=== PATIENT | female | born 1950 | race Caucasian/White ===

== ENCOUNTER 2018-06-11 20:04 | Emergency (ER) | payer MEDICARE, MEDICAID ==
[~2018-06-11] VITALS: Ht 165.1 cm; Wt 81.7 kg
[~2018-06-11 20:04] MED LIST: ARICEPT 5 MG TAB5 MG PO; ASPIRIN81 M2 PO; BUSPIRONE HCL10 MG PO; CALCIUM-VITAMI1 EAC1 PO; COZAAR 50 MG TA50 M2 PO; CRESTOR10 MG PO; FENOFIBRATE160 MG PO; KEPPRA 500 MG500 M1 PO; LEVOTHYROXIN0.088 MG PO; NAMENDA 5 MG TAB5 M1 PO; PEPCID20 MG PO; PROZAC20 MG PO; RANITIDINE 150150 M1 PO; SEROQUEL 25 MG25 M1 PO; SEROQUEL XR150 MG PO; THERAPEUTIC M PO; TOPROL XL50 MG PO; XANAX 0.25 MG0.25 MG PO
[2018-06-11 20:39] LABS: ABSOLUTE BASOPHILS 0.1 thou/uL (0.0-0.2); ABSOLUTE EOSINOPHILS 0.1 thou/uL (0.0-0.7); ABSOLUTE LYMPHOCYTES 2.4 thou/uL (0.8-5.3); ABSOLUTE NEUTROPHILS 2.5 thou/uL (1.6-8.1); EOSINOPHILS 1.8 %; HEMATOCRIT 30.6 % (37.0-47.0); HEMOGLOBIN 10.5 gm/dL (12.0-15.0); LYMPHOCYTES 39.7 %; MCH 32.4 pg (26.0-34.0); MCHC 34.1 g/dL (28.0-37.0); MCV 94.9 fL (80.0-100.0); MONOCYTES 15.8 %; MPV 9.4 fl. (7.2-11.1); NUCLEATED RBCS 0 /100WBC; PLATELET COUNT* 236 thou/uL (150-400); POLYS 41.7 %; RBC 3.23 mil/uL (4.20-5.00); RDW-CV 13.4 % (10.5-14.5); WBC 6.1 thou/uL (4.0-11.0)
[2018-06-11 20:48] LABS: APTT 25.4 Seconds (25.0-31.3); INR 1.1; PROTIME 11.6 Seconds (9.20-11.50)
[2018-06-11 20:57] LABS: ALBUMIN 3.2 g/dL (3.4-5.0); ALKALINE PHOSPHATASE 36 U/L (46-116); ANION GAP 7 mmol/L (7-16); BUN 16 mg/dL (7-18); CALCIUM 9.2 mg/dL (8.5-10.1); CHLORIDE 103 mmol/L (98-107); CO2 27 mmol/L (21-32); CREATININE 1.3 mg/dL (0.6-1.3); GLUCOSE 104 mg/dL (70-99); POTASSIUM 4.1 mmol/L (3.5-5.1); SGOT 33 U/L (15-37); SGPT 30 U/L (30-65); SODIUM 137 mmol/L (136-145); TOTAL BILIRUBIN 0.5 mg/dL (<0.1-1.0); TOTAL PROTEIN 6.7 g/dL (6.4-8.2); TROPONIN-I LEVEL <0.06 ng/mL (<0.06)
[2018-06-11] MEDS ORDERED: BENZTROPINE MES1 MG PO ×2 (21:12→21:13)
[2018-06-11] MEDS ORDERED: ARICEPT 5 MG TAB5 MG PO (21:15)
[2018-06-11] MEDS ORDERED: COLESTID1 GM PO (21:21)
[2018-06-11] MEDS ORDERED: DEPAKOTE SPRIN125 MG PO (21:22)
[2018-06-11] MEDS ORDERED: TAMIFLU75 MG PO (21:23)
[2018-06-11 23:25] VITALS: BP 135/85
--- NOTE | 2018-06-12 18:21 | EKG ---
[place] [address] ELECTROCARDIOGRAM REPORT Name: VICTOR M PINEDA Room: [facility]#: [id number] Admission: 06/11/18 Attend Phys: Discharge: 06/11/18 Date of : 54 Report #: [id number] THIS REPORT FOR: //name// [facility] ED Test Date: 2018-06-11 Test Time: 20:50:30 Pat Name: VICTOR M PINEDA Department: Room: Gender: F Service Assistant: ARLNE : 1950 Requested By: Mata Moore Order Number: [id number] MD: Bill Rodriguez Measurements Intervals [place] Rate: 58 P: 39 NV: 163 QRS: -10 QRSD: 104 T: 17 QT: 498 QTc: 490 Interpretive Statements Sinus rhythm Low voltage, precordial leads Abnormal R-wave progression, late transition Borderline prolonged QT interval Baseline wander in lead(s) V6 No previous ECG available for comparison Electronically Signed On 06-12-2018 18:21:26 CDT by Bill Rodriguez [email or web address] <ELECTRONICALLY SIGNED> By: Bill Rodriguez MD, [facility] 06/12/18 1821 49 49 Bill Rodriguez MD, [facility] /EPI
== END 2018-06-11 23:27 ==
LOC: M.ERS 20:04
PROVIDERS: Family Medicine
DX: S00.03XA Contusion of scalp, initial encounter (principal); I10 Essential (primary) hypertension; G30.9 Alzheimer's disease, unspecified; Z86.73 Personal history of transient ischemic attack (TIA), and cerebral infarction without residual deficits; Z87.440 Personal history of urinary (tract) infections; Z90.710 Acquired absence of both cervix and uterus; Z90.49 Acquired absence of other specified parts of digestive tract; Z88.1 Allergy status to other antibiotic agents; W07.XXXA Fall from chair, initial encounter; Y93.89 Activity, other specified; Y92.89 Other specified places as the place of occurrence of the external cause; Y99.8 Other external cause status

== ENCOUNTER 2018-06-24 16:12 | Inpatient (IN) | payer MEDICARE, MEDICAID ==
[~2018-06-24] VITALS: Ht 162.6 cm; Wt 83.5 kg
--- NOTE | ~2018-06-24 | CON ---
[address] [address] CONSULTATION Name: VICTOR M PINEDA Room: [address] IN .R.#: [id number] Admission: 06/24/18 Attend Phys: Paulo Galan, Discharge: Date of : 54 Report #: [id number] THIS REPORT FOR: //name// CC: Shiraz Galan DATE OF SERVICE: 06/25/2018 REQUESTING PHYSICIAN: Paulo Galan MD REASON FOR CONSULTATION: Acute kidney injury. HISTORY OF PRESENT ILLNESS: The patient is an unfortunate 67-year-old female with history of early dementia. She was admitted due to worsening of her mental status was very confused. She also fell on 06/11/2018, head strike, but there was no concussion. No fractures or any other bones. She also had recent UTI and completed her medications. Antibiotics were finished yesterday. Her renal function is at the baseline, creatinine around 1.2-1.4, on admission it was 2.6. She was given fluids and creatinine down today to 1.7. FAMILY HISTORY: Noncontributory. SOCIAL HISTORY: No tobacco. No alcohol abuse. REVIEW OF SYSTEMS: Unreliable due to her dementia. PHYSICAL EXAMINATION: GENERAL: Alert, awake, disoriented. No acute distress. VITAL SIGNS: Blood pressure 120/48, heart rate 65, afebrile. HEENT: Pupils are round. NECK: Supple. LUNGS: Clear. CARDIOVASCULAR: Regular rate. ABDOMEN: Soft. LOWER EXTREMITIES: No edema. ASSESSMENT: 1. Acute kidney injury, most likely due to volume depletion. 2. Chronic kidney disease stage 3. 3. Dementia. PLAN: Gentle hydration. Her renal function is already improving and after [facility] [address] [place] [address] CONSULTATION Name: VICTOR M PINEDA Room: [address] IN [facility].#: [id number] Admission: 06/24/18 Attend Phys: Paulo Galan, Discharge: Date of : 54 Report #: [id number] discharge, she will need to make sure that she is drinking at least 1800 mL of fluids per day. By: [id number] Ireland MD /troy
[~2018-06-24 16:12] MED LIST changes: +BENZTROPINE MES1 MG PO; +COLESTID1 GM PO; +DEPAKOTE SPRIN125 MG PO; +TAMIFLU75 MG PO
[2018-06-24 16:13] VITALS: BP 117/56
[2018-06-24] MEDS ORDERED: ACIDOPHILUS1 EAC4 PO (16:21)
[2018-06-24] MEDS ORDERED: BACTRIM DS TAB1 EACH PO (16:21)
[2018-06-24] MEDS ORDERED: SEROQUEL 25 MG25 M1 PO (16:21)
[2018-06-24] MEDS ORDERED: BUSPIRONE HCL10 MG PO (16:23)
[2018-06-24 17:03] LABS: ABSOLUTE BASOPHILS 0.1 thou/uL (0.0-0.2); ABSOLUTE EOSINOPHILS 0.2 thou/uL (0.0-0.7); ABSOLUTE LYMPHOCYTES 2.6 thou/uL (0.8-5.3); ABSOLUTE MONOCYTES 1.3 thou/uL (0.0-1.2); ABSOLUTE NEUTROPHILS 3.1 thou/uL (1.6-8.1); EOSINOPHILS 3.3 %; HEMATOCRIT 33.9 % (37.0-47.0); HEMOGLOBIN 11.4 gm/dL (12.0-15.0); LYMPHOCYTES 35.8 %; MCH 31.4 pg (26.0-34.0); MCHC 33.5 g/dL (28.0-37.0); MCV 93.7 fL (80.0-100.0); MONOCYTES 17.3 %; MPV 11.3 fl. (7.2-11.1); NUCLEATED RBCS 0 /100WBC; PLATELET COUNT* 305 thou/uL (150-400); POLYS 42.6 %; RBC 3.62 mil/uL (4.20-5.00); RDW-CV 13.4 % (10.5-14.5); WBC 7.2 thou/uL (4.0-11.0)
[2018-06-24 17:11] LABS: INR 1.1; PROTIME 11.6 Seconds (9.20-11.50)
[2018-06-24 17:22] LABS: ANION GAP 13 mmol/L (7-16); BUN 49 mg/dL (7-18); CALCIUM 9.4 mg/dL (8.5-10.1); CHLORIDE 102 mmol/L (98-107); CO2 23 mmol/L (21-32); CREATININE 2.6 mg/dL (0.6-1.3); GLUCOSE 104 mg/dL (70-99); POTASSIUM 4.8 mmol/L (3.5-5.1); SODIUM 138 mmol/L (136-145); TROPONIN-I LEVEL <0.06 ng/mL (<0.06)
[2018-06-24 17:23] LABS: ALBUMIN 2.9 g/dL (3.4-5.0); ALKALINE PHOSPHATASE 53 U/L (46-116); LIPASE 61 U/L (73-393); NT-PRO BRAIN NAT PEPTIDE 235 pg/mL (<300); SGOT 57 U/L (15-37); SGPT 33 U/L (30-65); TOTAL BILIRUBIN 0.3 mg/dL (<0.1-1.0); TOTAL PROTEIN 7.2 g/dL (6.4-8.2)
[2018-06-24 20:20] LABS: URINE BILIRUBIN NEGATIVE (Negative); URINE BLOOD NEGATIVE (Negative); URINE CLARITY CLEAR; URINE COLOR YELLOW; URINE GLUCOSE-RANDOM NEGATIVE (Negative); URINE KETONES TRACE (Negative); URINE LEUKOCYTES-REFLEX NEGATIVE (Negative); URINE NITRITE-REFLEX NEGATIVE (Negative); URINE PROTEIN NEGATIVE (Negative); URINE SPECIFIC GRAVITY >= 1.030 (1.005-1.030)
[2018-06-24 21:55] VITALS: BP 118/57
[2018-06-24 23:00] VITALS: BP 138/90
[2018-06-25 05:02] LABS: HEMATOCRIT 30.7 % (37.0-47.0); HEMOGLOBIN 10.1 gm/dL (12.0-15.0); MCH 31.4 pg (26.0-34.0); MCV 95.2 fL (80.0-100.0); MPV 11.7 fl. (7.2-11.1); RBC 3.22 mil/uL (4.20-5.00); RDW-CV 13.6 % (10.5-14.5); WBC 7.2 thou/uL (4.0-11.0)
[2018-06-25 05:20] LABS: ALBUMIN 2.4 g/dL (3.4-5.0); CALCIUM 8.7 mg/dL (8.5-10.1); CREATININE 1.7 mg/dL (0.6-1.3); MAGNESIUM 1.7 mg/dL (1.8-2.4); POTASSIUM 4.8 mmol/L (3.5-5.1); TOTAL BILIRUBIN 0.2 mg/dL (<0.1-1.0); TOTAL PROTEIN 5.9 g/dL (6.4-8.2)
[2018-06-25] MEDS ORDERED: FISH OIL 1,001000 M2 PO (07:45)
[2018-06-25] MEDS ORDERED: BACTRIM DS TAB1 EACH PO (07:48)
[2018-06-25 08:00] VITALS: BP 99/66
[2018-06-25 08:45] VITALS: BP 122/48; BP 99/66
--- NOTE | 2018-06-25 13:24 | EKG ---
[place] [address] ELECTROCARDIOGRAM REPORT Name: VICTOR M PINEDA Room: [address] ADM [place] M.R.#: [id number] Admission: 06/24/18 Attend Phys: Paulo Galan, Discharge: Date of : 54 Report #: [id number] THIS REPORT FOR: //name// [facility] ED Test Date: 2018-06-24 Test Time: 16:33:18 Pat Name: VICTOR M PINEDA Department: Room: [facility] Gender: F Wedding Consultant: : 1950 Requested By: Neftali Swan Order Number: [id number] MD: Nelson Aguirre Measurements Intervals [place] Rate: 59 P: 38 [place]: 153 QRS: -10 QRSD: 99 T: 37 QT: 486 QTc: 482 Interpretive Statements Sinus rhythm Multiform ventricular premature complexes Abnormal R-wave progression, late transition Nonspecific T abnormalities, anterior leads Compared to ECG 06/11/2018 20:50:30 Ventricular premature complex(es) now present T-wave abnormality now present Electronically Signed On 06-25-2018 13:24:01 CDT by Nelson Aguirre [email or web address] <ELECTRONICALLY SIGNED> By: Nelson Aguirre MD, [facility] 06/25/18 1324 1633 [id number] Nelson Aguirre MD, [facility] /EPI
[2018-06-25 17:36] VITALS: BP 146/69
[2018-06-26] VITALS: BP 106/85
[2018-06-26 04:32] LABS: HEMATOCRIT 33.3 % (37.0-47.0); HEMOGLOBIN 11.1 gm/dL (12.0-15.0); MCH 31.3 pg (26.0-34.0); MCHC 33.3 g/dL (28.0-37.0); RBC 3.54 mil/uL (4.20-5.00); RDW-CV 13.3 % (10.5-14.5); WBC 8.5 thou/uL (4.0-11.0)
[2018-06-26 04:49] LABS: ALBUMIN 2.5 g/dL (3.4-5.0); CREATININE 1.2 mg/dL (0.6-1.3); MAGNESIUM 1.4 mg/dL (1.8-2.4); PHOSPHORUS* 2.6 mg/dL (2.5-4.9); POTASSIUM 4.3 mmol/L (3.5-5.1)
[2018-06-26 08:10] VITALS: BP 185/68
[2018-06-26 12:46] VITALS: BP 185/68
[2018-06-26 13:27] LABS: CALCIUM 9.3 mg/dL (8.5-10.1); CREATININE 1.2 mg/dL (0.6-1.3); MAGNESIUM 1.5 mg/dL (1.8-2.4); POTASSIUM 4.7 mmol/L (3.5-5.1)
[2018-06-26 16:18] VITALS: BP 112/53
[2018-06-26 20:00] VITALS: BP 148/66
[2018-06-26 21:19] VITALS: BP 136/50
[2018-06-27 07:50] VITALS: BP 142/71
[2018-06-27 15:30] VITALS: BP 140/65
[2018-06-27 20:00] VITALS: BP 128/78
[2018-06-28] VITALS: BP 90/54
[2018-06-28 05:00] LABS: HEMATOCRIT 29.8 % (37.0-47.0); HEMOGLOBIN 9.9 gm/dL (12.0-15.0); MCH 30.9 pg (26.0-34.0); MCHC 33.1 g/dL (28.0-37.0); MCV 93.4 fL (80.0-100.0); MPV 11.2 fl. (7.2-11.1); RBC 3.19 mil/uL (4.20-5.00); RDW-CV 13.2 % (10.5-14.5); WBC 7.8 thou/uL (4.0-11.0)
[2018-06-28 05:34] LABS: ALBUMIN 2.2 g/dL (3.4-5.0); CALCIUM 8.6 mg/dL (8.5-10.1); POTASSIUM 4.3 mmol/L (3.5-5.1); TOTAL BILIRUBIN 0.3 mg/dL (<0.1-1.0); TOTAL PROTEIN 5.8 g/dL (6.4-8.2)
[2018-06-28 09:15] VITALS: BP 138/68
[2018-06-28 12:25] VITALS: BP 112/63
[2018-06-28 16:49] VITALS: BP 107/55
[2018-06-28 20:30] VITALS: BP 114/64
[2018-06-29 04:26] LABS: HEMATOCRIT 35.4 % (37.0-47.0); HEMOGLOBIN 11.7 gm/dL (12.0-15.0); MCV 93.8 fL (80.0-100.0); MPV 10.8 fl. (7.2-11.1); RBC 3.77 mil/uL (4.20-5.00); RDW-CV 13.5 % (10.5-14.5); WBC 7.7 thou/uL (4.0-11.0)
[2018-06-29 04:50] LABS: ANION GAP 8 mmol/L (7-16); BUN 14 mg/dL (7-18); CALCIUM 9.7 mg/dL (8.5-10.1); CHLORIDE 99 mmol/L (98-107); CHOLESTEROL 136 mg/dL (<200); CO2 26 mmol/L (21-32); GLUCOSE 94 mg/dL (70-99); HDL CHOLESTEROL 17 mg/dL (>40); LDL CHOLESTEROL 70 mg/dL (<100); POTASSIUM 3.9 mmol/L (3.5-5.1); SODIUM 133 mmol/L (136-145); TRIGLYCERIDE 245 mg/dL (<150); VLDL 49 mg/dL (<40)
[2018-06-29 05:02] LABS: SERUM ASSESSMENT Slight Lipemia
[2018-06-29 08:00] VITALS: BP 94/63
[2018-06-29 08:30] VITALS: BP 94/63
[2018-06-29 16:36] VITALS: BP 131/49
[2018-06-29 20:00] VITALS: BP 138/65
[2018-06-30 05:24] LABS: ABSOLUTE BASOPHILS 0.1 thou/uL (0.0-0.2); ABSOLUTE EOSINOPHILS 0.2 thou/uL (0.0-0.7); ABSOLUTE LYMPHOCYTES 2.6 thou/uL (0.8-5.3); ABSOLUTE MONOCYTES 1.3 thou/uL (0.0-1.2); ABSOLUTE NEUTROPHILS 3.8 thou/uL (1.6-8.1); BASOPHILS 0.7 %; EOSINOPHILS 2.8 %; HEMATOCRIT 32.9 % (37.0-47.0); HEMOGLOBIN 11.1 gm/dL (12.0-15.0); LYMPHOCYTES 32.4 %; MCH 31.4 pg (26.0-34.0); MCHC 33.7 g/dL (28.0-37.0); MCV 93.2 fL (80.0-100.0); MONOCYTES 16.4 %; MPV 10.7 fl. (7.2-11.1); NUCLEATED RBCS 0 /100WBC; PLATELET COUNT* 289 thou/uL (150-400); POLYS 47.7 %; RBC 3.53 mil/uL (4.20-5.00); RDW-CV 13.5 % (10.5-14.5)
[2018-06-30 05:42] LABS: CALCIUM 9.8 mg/dL (8.5-10.1); POTASSIUM 3.9 mmol/L (3.5-5.1)
[2018-06-30 08:00] VITALS: BP 149/82
[2018-06-30 20:00] VITALS: BP 144/82
[2018-07-01 00:30] VITALS: BP 129/61
[2018-07-01 07:43] VITALS: BP 126/60
[2018-07-01] MEDS ORDERED: COZAAR 50 MG TA50 M1 PO (11:46)
[2018-07-01] MEDS ORDERED: SEROQUEL 50 MG50 MG PO (11:47)
[2018-07-01] MEDS ORDERED: RANITIDINE 150150 M1 PO (11:49)
[2018-07-01] MEDS ORDERED: SENNA PLUS TAB1 EACH PO (11:49)
--- NOTE | 2018-07-03 19:12 | EEG ---
[address] [address] EEG STUDY REPORT Name: EDWINVICTOR M B Room: [address] IN M.R.#: [id number] Admission: 06/24/18 Attend Phys: Paulo Galan, Discharge: 07/01/18 Date of : 54 Report #: [id number] THIS REPORT FOR: //name// CC: Shiraz Galan DATE OF SERVICE: 06/30/2018 This patient is being evaluated for altered mental status. EEG was done by placing the electrode by standard 10-20 system of electrode placement. Both referential and sequential montages were used for recording. Background activity in this patient's EEG. The EEG is slow throughout the record. Photic stimulation was unremarkable. Throughout the record, no active epileptiform activity was noticed. IMPRESSION: This is an abnormal EEG because it is intermixed with theta range slowing on both sides. That is a nonspecific abnormality, which can occur with dementia, encephalopathy, effect of psychotropic medication, etc. No active epileptiform activity was noticed. Thank you very much for this referral. <ELECTRONICALLY SIGNED> By: Leonel Squires MD 07/03/181911 144 09Leonel Squires MD /nt
== END 2018-07-01 17:24 | DRG 91 ==
LOC: M.ERS 16:12 → M.TBA-ER 17:30 → M.3W 17:30
PROVIDERS: Emergency Medicine; Family Medicine; ADMIT Family Medicine
DX: G92 Toxic encephalopathy (principal); N17.0 Acute kidney failure with tubular necrosis; E43 Unspecified severe protein-calorie malnutrition; I63.9 Cerebral infarction, unspecified; N39.0 Urinary tract infection, site not specified; E86.0 Dehydration; H50.9 Unspecified strabismus; I12.9 Hypertensive chronic kidney disease with stage 1 through stage 4 chronic kidney disease, or unspecified chronic kidney disease; G30.9 Alzheimer's disease, unspecified; F02.80 Dementia in other diseases classified elsewhere, unspecified severity, without behavioral disturbance, psychotic disturbance, mood disturbance, and anxiety; E66.01 Morbid (severe) obesity due to excess calories; E03.9 Hypothyroidism, unspecified; E83.42 Hypomagnesemia; E86.9 Volume depletion, unspecified; H55.00 Unspecified nystagmus; R00.1 Bradycardia, unspecified; G40.909 Epilepsy, unspecified, not intractable, without status epilepticus; F20.9 Schizophrenia, unspecified; Z86.73 Personal history of transient ischemic attack (TIA), and cerebral infarction without residual deficits; N18.3 Chronic kidney disease, stage 3 (moderate); Z68.31 Body mass index [BMI] 31.0-31.9, adult; Z88.1 Allergy status to other antibiotic agents; Z79.82 Long term (current) use of aspirin; Z79.899 Other long term (current) drug therapy; Z90.710 Acquired absence of both cervix and uterus; Z98.42 Cataract extraction status, left eye; Z98.41 Cataract extraction status, right eye; Z82.49 Family history of ischemic heart disease and other diseases of the circulatory system; Z90.49 Acquired absence of other specified parts of digestive tract